=== PATIENT | female | born 1995 | race Two or more races ===

== ENCOUNTER 2024-01-21 15:00 | Inpatient (IN) | payer OTHER ==
[~2024-01-21] VITALS: Ht 160 cm; Wt 95.7 kg
[2024-02-16] MEDS ORDERED: ENOXAPARIN40 MG/0.4 SQ (16:56)
[2024-02-16] MEDS ORDERED: OBSTETRIX ONE1 EAC1 PO (16:57)
[2024-02-16] MEDS ORDERED: IRON325 MG PO (16:58)
[2024-02-16] MEDS ORDERED: ONDANSETRON ODT8 MG PO (16:58)
[2024-02-16] MEDS ORDERED: MISOPROSTOL 25 MCG TABLET ONE (17:09)
[2024-02-16] MEDS ORDERED: MISOPROSTOL 25 MCG TABLET VAG ONE (17:15)
[2024-02-16 17:21] LABS: HEMATOCRIT 31.9 % (36.0-45.00); HEMOGLOBIN 10.2 g/dL (12.0-15.00); MEAN CELL VOLUME 71.6 fL (80.00-100.00); MEAN CORPUSCULAR HGB CONC 32.1 g/dl (32.0-36.0); PLATELET COUNT 255 K/uL (150-450); RED BLOOD COUNT 4.45 M/uL (4.00-6.00); RED CELL DISTRIBUTION WIDTH 20.2 % (11.5-14.5)
[2024-02-16 17:35] LABS: INR < 0.93; PARTIAL THROMBOPLASTIN TIME 25.5 SECONDS (22.0-34.0); PROTHROMBIN TIME 9.6 SECONDS (9.0-11.5)
[2024-02-16 17:40] LABS: ALBUMIN 2.7 gm/dL (3.4-5.0); BILIRUBIN TOTAL 0.13 mg/dL (0.3-1.2); CALCIUM 9.4 mg/dL (8.5-10.1); CREATININE SERUM 0.52 mg/dL (0.55-1.02); GFR 139.41; GLOBULINA 3.8 G/DL (2.4-3.5); POTASSIUM 4.48 mEq/L (3.5-5.1); TOTAL PROTEIN 6.5 gm/dL (6.4-8.2)
[2024-02-17] MEDS ORDERED: MORPHINE SULFATE 4 MG/ML VIAL IV PRN (02:15)
[2024-02-17] MEDS ORDERED: OXYTOCIN 20 UNITS/500ML RL PIGGYBAG IV ONE (04:25)
[2024-02-17] MEDS ORDERED: OXYTOCIN 500 ML IV ONE (04:30)
[2024-02-17] MEDS ORDERED: ERYTHROMYCIN BASE 1 GM TUBE OP ONE (08:51)
[2024-02-17] MEDS ORDERED: CHLORHEXIDINE GLUCONATE 120 ML BOTTLE TOP ONE (08:51)
[2024-02-17] MEDS ORDERED: OXYTOCIN 20 UNITS/1000ML RL PIGGYBAG IV ONE (10:45)
[2024-02-17] MEDS ORDERED: CHLORHEXIDINE GLUCONATE 120 ML BOTTLE TP SCH (10:45)
[2024-02-17] MEDS ORDERED: ERYTHROMYCIN BASE 1 GM TUBE OP SCH (10:45)
[2024-02-17] MEDS ORDERED: IBUprofen 400 MG TABLET PO PRN (10:45)
[2024-02-17] MEDS ORDERED: LIDOCAINE HCL 1% 10ML VIAL IJ ONE (11:00)
[2024-02-18 06:23] LABS: HEMATOCRIT 29.2 % (36.0-45.00); HEMOGLOBIN 9.5 g/dL (12.0-15.00); MEAN CELL VOLUME 72.9 fL (80.00-100.00); MEAN CORPUSCULAR HEMOGLOBIN 23.6 pg (27.00-32.0); MEAN CORPUSCULAR HGB CONC 32.4 g/dl (32.0-36.0); PLATELET COUNT 210 K/uL (150-450); RED BLOOD COUNT 4.01 M/uL (4.00-6.00); RED CELL DISTRIBUTION WIDTH 20.1 % (11.5-14.5)
[2024-02-18] MEDS ORDERED: ENOXAPARIN SODIUM 40 MG/0.4 ML SYRINGE SUBCUTANEO SCH ×2 (09:00→17:00)
[2024-02-19] MEDS ORDERED: MISOPROSTOL 100 MCG TABLET PO ONE (09:15)
[2024-02-19] MEDS ORDERED: MINERAL OIL 30 ML BLIST.PACK PO ONE (15:00)
[2024-02-19] MEDS ORDERED: MAGNESIUM HYDROXIDE 30 ML BLIST.PACK PO ONE (15:00)
[2024-02-19 19:30] LABS: MEAN CELL VOLUME 73.4 fL (80.00-100.00); MEAN CORPUSCULAR HGB CONC 31.9 g/dl (32.0-36.0); PLATELET COUNT 187 K/uL (150-450); RED BLOOD COUNT 3.82 M/uL (4.00-6.00); RED CELL DISTRIBUTION WIDTH 21.3 % (11.5-14.5)
[2024-02-19 19:43] LABS: ALBUMIN 2.5 gm/dL (3.4-5.0); BILIRUBIN TOTAL 0.23 mg/dL (0.3-1.2); CALCIUM 8.8 mg/dL (8.5-10.1); CREATININE SERUM 0.56 mg/dL (0.55-1.02); GFR 127.99; GLOBULINA 3.3 G/DL (2.4-3.5); POTASSIUM 3.78 mEq/L (3.5-5.1); TOTAL PROTEIN 5.8 gm/dL (6.4-8.2)
[2024-02-19 19:45] LABS: HEMOGLOBIN 8.9 g/dL (12.0-15.00); MEAN CORPUSCULAR HEMOGLOBIN 23.2 pg (27.00-32.0)
== END 2024-02-20 13:08 | disposition home or self-care (01) | DRG 807 ==
LOC: OB/GYN 02-12 15:00 → LDR 02-16 15:51 → OB/GYN 02-17 12:52
PROVIDERS: Obstetrics & Gynecology; Obstetrics & Gynecology Gynecology; ADMIT Obstetrics & Gynecology Maternal & Fetal Medicine; ATTEND Obstetrics & Gynecology Maternal & Fetal Medicine
PROC: 3E0P7VZ Introduction of Hormone into Female Reproductive, Via Natural or Artificial Opening (ICD-10-PCS; 2024-02-16)
PROC: 4A1HXCZ Monitoring of Products of Conception, Cardiac Rate, External Approach (ICD-10-PCS; 2024-02-16)
PROC: 10E0XZZ Delivery of Products of Conception, External Approach (ICD-10-PCS; principal; 2024-02-17)
PROC: 0KQM0ZZ Repair Perineum Muscle, Open Approach (ICD-10-PCS; 2024-02-17)
PROC: 0UQG7ZZ Repair Vagina, Via Natural or Artificial Opening (ICD-10-PCS; 2024-02-17)
PROC: 3E033VJ Introduction of Other Hormone into Peripheral Vein, Percutaneous Approach (ICD-10-PCS; 2024-02-17)
DX: O70.1 Second degree perineal laceration during delivery (principal); Z37.0 Single live birth; Z3A.40 40 weeks gestation of pregnancy; Z20.822 Contact with and (suspected) exposure to COVID-19

== ENCOUNTER 2024-02-03 13:18 | Outpatient (CLI) | payer OTHER | END 2024-02-03 13:50 | disposition home or self-care (01) | LOC: NST 13:18 | PROVIDERS: ATTEND Obstetrics & Gynecology Maternal & Fetal Medicine | DX: Z34.83 Encounter for supervision of other normal pregnancy, third trimester (principal) ==

== ENCOUNTER 2024-02-15 14:32 | Outpatient (CLI) | payer OTHER ==
[2024-02-16] MEDS ORDERED: ENOXAPARIN40 MG/0.4 SQ (16:56)
[2024-02-16] MEDS ORDERED: OBSTETRIX ONE1 EAC1 PO (16:57)
[2024-02-16] MEDS ORDERED: ONDANSETRON ODT8 MG PO (16:58)
[2024-02-16] MEDS ORDERED: IRON325 MG PO (16:58)
== END 2024-02-15 15:50 | disposition home or self-care (01) ==
LOC: NST 14:32
PROVIDERS: ATTEND Obstetrics & Gynecology
DX: Z34.83 Encounter for supervision of other normal pregnancy, third trimester (principal)